=== PATIENT | female | born 1940 | race Caucasian/White ===

== ENCOUNTER 2016-07-29 09:49 | Emergency (ER) | payer MEDICARE, MEDICAID ==
[~2016-07-29] VITALS: Ht 147.3 cm; Wt 58.9 kg
[~2016-07-29 09:49] MED LIST: ASPI-650 PO; CEPH500T PO; GLIP10TA13 PO; INSU100V13 SC; LISI-167 PO; PHEN-494 PO; SIMV20TA3 PO
[2016-07-29 11:28] LABS: ASPARTATE AMINO TRANSFERASE 8 U/L (15-37); BLOOD UREA NITROGEN 16 mg/dL (7-18)
[2016-07-29] MEDS ORDERED: ONDA4TAB10 PO (11:33)
[2016-07-29 11:34] VITALS: BP 129/47
[2016-07-29] MEDS ORDERED: OMNIPAQUE 350 MG/ML, 100ML BOTTLE ONE (12:49)
== END 2016-07-29 13:47 | disposition home or self-care (01) ==
LOC: ED 13:20
DX: N30.01 Acute cystitis with hematuria (principal); B02.29 Other postherpetic nervous system involvement; I10 Essential (primary) hypertension; E11.9 Type 2 diabetes mellitus without complications; Z90.710 Acquired absence of both cervix and uterus
CPT/HCPCS: 36415; 74177; 80053; 81001; 85025; 87077; 87086; 87186; 99285; Q9967

== ENCOUNTER 2017-04-26 08:42 | Emergency (ER) | payer MEDICAID, MEDICARE ==
[~2017-04-26] VITALS: Ht 144.8 cm; Wt 58.9 kg
[~2017-04-26 08:42] MED LIST changes: +ONDA4TAB10 PO; -PHEN-494 PO; +PHEN-583 PO
[2017-04-26 08:45] VITALS: BP 136/69
[2017-04-26 10:59] LABS: RAPID INFLUENZA A Negative (Negative); RAPID INFLUENZA B Negative (Negative)
== END 2017-04-26 11:28 | disposition home or self-care (01) ==
LOC: ED 09:47
DX: H92.03 Otalgia, bilateral (principal); J40 Bronchitis, not specified as acute or chronic; J02.8 Acute pharyngitis due to other specified organisms; B97.89 Other viral agents as the cause of diseases classified elsewhere; E11.9 Type 2 diabetes mellitus without complications; I10 Essential (primary) hypertension; E78.5 Hyperlipidemia, unspecified
CPT/HCPCS: 71046; 87081; 87147; 87400; 87880; 99285

== ENCOUNTER 2018-03-02 21:16 | Emergency (ER) | payer MEDICARE ==
[~2018-03-02] VITALS: Ht 144.8 cm; Wt 60.2 kg
[2018-03-02 22:00] LABS: BASOPHILS # (AUTO) 0.04 x10^3/uL (0-0.1); BASOPHILS % (AUTO) 0 % (0-1); EOSINOPHILS # (AUTO) 0.16 x10^3/uL (0-0.4); EOSINOPHILS % (AUTO) 1 % (1-7); LYMPHOCYTES # (AUTO) 3.62 x10^3/uL (1-3.4); LYMPHOCYTES % (AUTO) 22 % (22-44); MD NO; MEAN CORPUSCULAR HEMOGLOBIN 29.9 pg (27.0-34.8); MEAN CORPUSCULAR HGB CONC 34.7 g/dL (32.4-35.8); MEAN CORPUSCULAR VOLUME 86.3 fL (80-100); MEAN PLATELET VOLUME 11.1 fL (7.4-10.4); MONOCYTES # (AUTO) 1.13 x10^3/uL (0.2-0.8); MONOCYTES % (AUTO) 7 % (2-9); NEUTROPHILS # (AUTO) 11.28 x10^3/uL (1.8-6.8); NEUTROPHILS % (AUTO) 70 % (42-75); PLATELET COUNT 223 x10^3/uL (130-400); RED BLOOD COUNT 4.91 x10^6/uL (3.82-5.3); RED CELL DISTRIBUTION WIDTH 12.8 % (9.6-15.2)
[2018-03-02 22:09] LABS: ANION GAP 8 mmol/L (5-15); CALCIUM 8.4 mg/dL (8.5-10.1); CHLORIDE 101 mmol/L (98-107); CREATININE 0.87 mg/dL (0.55-1.02)
[2018-03-02] MEDS ORDERED: OMNIPAQUE 350 MG/ML, 100ML BOTTLE ONE (23:05)
--- NOTE | 2018-03-02 23:15 | NUR ---
PT BACK FROM CT AT THIS TIME.
--- NOTE | 2018-03-02 23:25 | NUR ---
PT RESTING COMFORTABLY IN [facility] AT THIS TIME, NADN. PT VSS AND UPDATED IN EMR. PT DENIES ANY NEEDS AT THIS TIME. CALL LIGHT IS WITHIN REACH.
--- NOTE | 2018-03-03 00:29 | NUR ---
PT D/C WITH D/C SUMMARY AND SCRIPTS IN CARE OF FAMILY. PT VERBALIZES UNDERSTANDING OF NEED TO CONTINUE ABX THERAPY UNTIL END OF SCRIPT. PT DENIES ANY OTHER NEEDS PERTAINING TO THIS VISIT. PT AMBULATES TO REGISTRATION DESK WITH STEADY GAIT FOR D/C HOME.
[2018-03-03 00:31] VITALS: BP 159/68
== END 2018-03-03 00:32 | disposition home or self-care (01) ==
LOC: ED 03-03 00:30
DX: J02.8 Acute pharyngitis due to other specified organisms (principal); E11.65 Type 2 diabetes mellitus with hyperglycemia; E78.5 Hyperlipidemia, unspecified; I10 Essential (primary) hypertension; Z90.710 Acquired absence of both cervix and uterus
CPT/HCPCS: 36415; 71046; 71260; 80048; 82040; 85025; 87081; 87880; 99284; Q9967

== ENCOUNTER 2020-10-04 18:27 | Emergency (ER) | payer MEDICARE, MEDICAID ==
[~2020-10-04] VITALS: Ht 137.2 cm; Wt 56.0 kg
[~2020-10-04 18:27] MED LIST changes: -ASPI-650 PO; +ASPI325T20 PO; +SIMV20TA19 PO; -SIMV20TA3 PO
[2020-10-04] MEDS ORDERED: DIPH,PERTUSS(ACELL),TET VAC/PF 0.5 ML IM-VACC ONE ×2 (19:00→19:58)
[2020-10-04] MEDS ORDERED: LIDOCAINE-MPF 1%, 5ML INFIL ONE (19:00)
[2020-10-04] MEDS ORDERED: LIDOCAINE-MPF 1%, 2ML ONE (19:48)
[2020-10-04 20:46] VITALS: BP 158/67
== END 2020-10-04 20:56 | disposition home or self-care (01) ==
LOC: ED 20:53
DX: S01.01XA Laceration without foreign body of scalp, initial encounter (principal); S16.1XXA Strain of muscle, fascia and tendon at neck level, initial encounter; I10 Essential (primary) hypertension; E11.65 Type 2 diabetes mellitus with hyperglycemia; E78.5 Hyperlipidemia, unspecified; W07.XXXA Fall from chair, initial encounter; Y93.89 Activity, other specified; Y92.009 Unspecified place in unspecified non-institutional (private) residence as the place of occurrence of the external cause; Y99.8 Other external cause status
CPT/HCPCS: 12001; 70450; 72125; 90471; 90715

== ENCOUNTER 2020-10-14 20:16 | Emergency (ER) | payer MEDICARE, MEDICAID ==
[~2020-10-14] VITALS: Ht 142.2 cm; Wt 61.9 kg
[2020-10-14 20:26] VITALS: BP 176/57
== END 2020-10-14 21:56 | disposition home or self-care (01) ==
LOC: ED 21:00
DX: S01.91XD Laceration without foreign body of unspecified part of head, subsequent encounter (principal); I10 Essential (primary) hypertension; X58.XXXD Exposure to other specified factors, subsequent encounter
CPT/HCPCS: 99281